=== PATIENT | female | born 2000 | race Asian ===

== ENCOUNTER 2023-12-13 09:25 | Emergency (ER) | payer BC ==
[2023-12-13] MEDS ORDERED: Dexamethasone 10 MG/ML VIAL ONE (11:28)
== END 2023-12-13 12:45 | disposition home or self-care (01) ==
LOC: CSHERS 09:25
DX: J02.9 Acute pharyngitis, unspecified (principal)
CPT/HCPCS: 87081; 87428; 87430; 99283; J1100